=== PATIENT | male | born 1955 | race Caucasian/White ===

== ENCOUNTER 2019-03-22 05:18 | Emergency (ER) | payer OTHER ==
[~2019-03-22] VITALS: Ht 172.7 cm; Wt 93.2 kg
[~2019-03-22 05:18] MED LIST: ASPIRIN 32325 MG/TAB PO; NORCO 325 MG-51 TAB PO; PRINZIDE 12.5 M1 TAB PO; ZOFRAN 4MG T4 MG/TAB PO
[2019-03-22 07:05] LABS: BASO % 0.3 % (0.0-2.0); EOS # 0.1 (0.0-0.7); EOS % 1.1 % (0-4.0); GRAN # 4.3 (1.4-6.5); GRAN % 70.1 % (42.2-75.2); HEMATOCRIT 38.9 % (42.0-52.0); HEMOGLOBIN 13.2 g/dl (13.5-18.0); LYMPH # 1.1 (1.2-3.4); LYMPH % 18.1 % (20.0-51.0); MEAN CELL VOLUME 86 fl (80.0-100.0); MEAN CORPUSCULAR HEMOGLOBIN 29 pg (27.0-31.0); MEAN CORPUSCULAR HGB CONC 34 g/dl (33.0-37.0); MEAN PLATELET VOLUME 9.7 fl (7.4-10.4); MONO # 0.6 (0.1-0.6); MONO % 10.2 % (1.7-9.3); PLATELET COUNT 179 K/mm3 (130-400); REDCELL DISTRIBUTION WIDTH-CV 12.8 % (11.5-14.5)
[2019-03-22 07:21] LABS: ALBUMIN 3.9 gm/dL (3.5-5.0); BILIRUBIN,TOTAL 0.5 mg/dL (0.0-1.0); C-REACTIVE PROTEIN 0.6 mg/dL (0.0-0.9); CALCIUM 9.4 mg/dL (8.4-10.2); CREATININE, serum 1.09 (0.66-1.25); POTASSIUM 3.5 mmol/L (3.4-5.0); TOTAL PROTEIN 6.6 gm/dL (6.4-8.2)
[2019-03-22] MEDS ORDERED: FLAGYL500 MG PO (08:00)
[2019-03-22] MEDS ORDERED: ANUSOL-HC SUPPO25 MG RC (08:00)
[2019-03-22] MEDS ORDERED: AMOXICILLIN 8751 TAB PO (08:00)
[2019-03-22 08:25] VITALS: BP 141/99; PULSE 85; TEMP 97.3
== END 2019-03-22 08:25 | disposition home or self-care (01) ==
LOC: COL.ER 05:18
PROVIDERS: Emergency Medicine
DX: K52.9 Noninfective gastroenteritis and colitis, unspecified (principal); K62.89 Other specified diseases of anus and rectum; K62.5 Hemorrhage of anus and rectum; I10 Essential (primary) hypertension; Z79.82 Long term (current) use of aspirin

== ENCOUNTER 2020-02-16 08:18 | Emergency (ER) | payer OTHER ==
[~2020-02-16] VITALS: Ht 172.7 cm; Wt 86.4 kg
[~2020-02-16 08:18] MED LIST changes: +AMOXICILLIN 8751 TAB PO; +ANUSOL-HC SUPPO25 MG RC; +FLAGYL500 MG PO
[2020-02-16 08:30] VITALS: BP 141/105; PULSE 70; TEMP 97.9
[2020-02-16] MEDS ORDERED: PRIL40 PO (08:47)
[2020-02-16] MEDS ORDERED: BACITRACIN TOPIC1 TU TOP (09:37)
== END 2020-02-16 09:45 | disposition home or self-care (01) ==
LOC: COL.ER 08:18
DX: S51.811A Laceration without foreign body of right forearm, initial encounter (principal); I10 Essential (primary) hypertension; E78.5 Hyperlipidemia, unspecified; K21.9 Gastro-esophageal reflux disease without esophagitis; Z79.899 Other long term (current) drug therapy; Z79.82 Long term (current) use of aspirin; W01.0XXA Fall on same level from slipping, tripping and stumbling without subsequent striking against object, initial encounter

== ENCOUNTER 2022-02-11 09:08 | Day surgery (SDC) | payer OTHER ==
[2022-02-11] VITALS (8 sets, daily range): BP systolic 113–138; BP diastolic 65–90; PULSE 58–76; TEMP 97.5–97.6
[~2022-02-11] VITALS: Ht 172.7 cm; Wt 87.3 kg
[~2022-02-11 09:08] MED LIST changes: +BACITRACIN TOPIC1 TU TOP; +PRIL40 PO
[2022-02-11] MEDS ORDERED: NORVASC 5MG5 MG/TAB PO (09:38)
[2022-02-11] MEDS ORDERED: NORCO 325 MG-51 TAB PO (12:37)
--- NOTE | 2022-02-11 12:45 | NUR ---
PT TO BAY 7 PER CART FROM PACU. RECEIVED REPORT. VS OBTAINED. PT STATES HE WOULD LIKE TO REST. DENIES ANY OTHER NEEDS AT THIS TIME.
--- NOTE | 2022-02-11 13:00 | NUR ---
PT CONTINUES TO REST COMFORTABLY. DENIES ANY NEEDS.
--- NOTE | 2022-02-11 13:15 | NUR ---
PT TOLERATING WATER WITHOUT DIFFICULTY.
--- NOTE | 2022-02-11 13:30 | NUR ---
PT C/O NAUSEA. COLD WASH CLOTH GIVEN AND DISCUSSED IV MEDICATION TO ASSIST WITH NAUSEA.
--- NOTE | 2022-02-11 13:37 | NUR ---
ZOFRAN 4MG IV GIVEN FOR NAUSEA.
--- NOTE | 2022-02-11 13:45 | NUR ---
PT CONTINUES TO REST.
--- NOTE | 2022-02-11 14:00 | NUR ---
PT STATES NAUSEA WAS BETTER. DENIES ANY NEEDS AT THIS TIME.
--- NOTE | 2022-02-11 14:30 | NUR ---
PT TOLERATING WATER AND MUFFIN. DENIES ANY NEEDS AT THIS TIME.
--- NOTE | 2022-02-11 15:30 | NUR ---
PT UP TO RESTROOM AND VOIDED WITHOUT DIFFICULTY. IV DC'D AT THIS TIME.
--- NOTE | 2022-02-11 15:35 | NUR ---
DISCHARGE EDUCATION COMPLETED WITH PT AND HIS . VERBALIZED UNDERSTANDING OF HOME AND FOLLOW UP CARE. ALL QUESTIONS ANSWERED. DISCHARGE PAPERWORK GIVEN TO PT.
--- NOTE | 2022-02-11 15:45 | NUR ---
PT OFF UNIT PER WHEELCHAIR. PT DISCHARGED TO HOME WITH PER PERSONAL VEHICLE.
== END 2022-02-11 15:45 | disposition home or self-care (01) ==
LOC: SDCO 09:08
DX: K40.90 Unilateral inguinal hernia, without obstruction or gangrene, not specified as recurrent (principal)
CPT/HCPCS: C1781; J0690; J1100; J1885; J2405; J2704; J3010; J7120